=== PATIENT | male | born 1950 | race Caucasian/White ===

== ENCOUNTER 2018-04-15 06:32 | Emergency (ER) | payer MEDICARE, OTHER ==
[2018-04-15] MEDS ORDERED: MELOXICAM 7.5 MG TABLET PO STA (07:14)
--- NOTE | 2018-04-15 07:17 | ED Physician Documentation ---
History of Present Illness - Stated complaint Stated Complaint: R FOOT PX - Chief complaint Chief Complaint: Ext Problem - History obtained from History obtained from: Patient - History of Present Illness Timing: How many days ago (3) Pain level max: 8 Pain level now: 6 - Additonal information Additional information: Patient is a 67-year-old gentleman who recently returned from a backpacking trip in which he walked approximately 50 miles. States increasing pain to the Achilles tendon on the right ankle. Has had problems with this tendon in the past. Worse with walking. Better with rest. Has taken Advil for this. No fall, no injury. No recent antibiotic use Review of Systems Musculoskeletal: denies: Back pain Neurologic: denies: Numbness, Headache PD PAST MEDICAL HISTORY - Past Medical History Past Medical History: Yes Cardiovascular: None Respiratory: Asthma Endocrine/Autoimmune: None GI: GERD : Nocturia HEENT: Chronic vision loss, Other Psych: None Musculoskeletal: Chronic back pain, Other Derm: None - Past Surgical History Past Surgical History: Yes General: Other Ortho: Hip replacement, Knee replacement, Other HEENT: Tonsil/Adenoidectomy - Present Medications Home Medications: Ambulatory Orders Medication Instructions Recorded Confirmed Albuterol Sulfate [Proventil Hfa] 6.7 gm IH QID PRN 08/13/13 10/18/16 Fluticasone [Flonase] 1 sprays MONA DAILY PRN 08/13/13 10/18/16 Ropinirole HCl [Requip Xl] 6 mg PO DAILY 08/13/13 10/18/16 Ropinirole HCl [Requip] 3 mg PO DAILY 08/13/13 10/18/16 Gabapentin [Neurontin] 600 mg PO ACHS PRN 04/08/14 10/18/16 Tamsulosin HCl [Flomax] 0.4 mg PO DAILY 06/10/14 10/18/16 Meloxicam [Mobic] 15 mg PO DAILY PRN #20 tablet 04/15/18 - Allergies Allergies/Adverse Reactions: Allergies Allergy/AdvReac Type Severity Reaction Status Date / Time neomycin [Neomycin] Allergy Intermediate Rash Verified 04/15/18 06:41 acetaminophen [From Percocet] AdvReac Intermediate Itching Verified 04/15/18 06: 41 oxycodone HCl * AdvReac Intermediate Itching Verified 04/15/18 06:41 [From Percocet] - Social History Does the pt smoke?: No Smoking Status: Never smoker Does the pt drink ETOH?: Yes Does the pt have substance abuse?: No - Immunizations Immunizations are current?: Yes - POLST Patient has POLST: No PD ED PE NORMAL - Vitals Vital signs reviewed: Yes - General General: Alert and oriented X 3, No acute distress - Derm Derm: Warm and dry - Extremities Extremities: Other (Tender to palpation over the right distal Achilles tendon. Good plantar and dorsiflexion of the foot. Foot plantar flexes with squeezing of the calf. No deformity. Otherwise normal exam of the foot and ankle. Neurovascularly intact) - Neuro Neuro: Alert and oriented X 3 - Psych Psych: Normal mood, Normal affect Results - Vitals Vitals: Vital Signs - 24 hr 04/15/18 06:36 Temperature 36.5 C Heart Rate 64 Respiratory 18 Rate Blood Pressure 133/65 H O2 Saturation 99 Oxygen O2 Source [Without Activity] Room air O2 Source Room air PD MEDICAL DECISION MAKING - ED course Complexity details: considered differential, d/w patient ED course: Patient is a 67-year-old male who presents to the emergency department with her right ankle Achilles tendinitis. No evidence of rupture. Placed in a walking boot and will place on meloxicam for home. We will have him follow-up with his doctor for further care. Likely overuse injury from his recent backpacking trip. Patient counseled regarding signs and symptoms for which I believe and urgent re-evaluation would be necessary. Patient with good understanding of and agreement to plan and is comfortable going home at this time This document was made in part using voice recognition software. While efforts are made to proofread this document, sound alike and grammatical errors may occur. Departure - Departure Disposition: Home, Self Care Clinical Impression: Achilles tendinitis, right leg Condition: Good Instructions: Achilles Tendonitis Follow-Up: Curt Varner MD [Primary Care Provider] - Within 1 week Prescriptions: Meloxicam [Mobic] 15 mg PO DAILY PRN #20 tablet PRN Reason: pain Comments: Wear the boot as much as possible for comfort. Return if you worsen. You should be reevaluated by your doctor in 1 week to ensure that you are healing as expected.
[2018-04-15 07:39] VITALS: BP 144/62
== END 2018-04-15 07:31 | disposition home or self-care (01) ==
LOC: ED 06:32
DX: M76.61 Achilles tendinitis, right leg (principal); Z96.659 Presence of unspecified artificial knee joint; Z96.649 Presence of unspecified artificial hip joint
CPT/HCPCS: 99283; A9270

== ENCOUNTER 2018-08-15 09:46 | Outpatient (CLI) | payer MEDICARE, OTHER ==
--- NOTE | 2018-08-15 11:18 | Ultrasound Report ---
Reason: RIGHT LEG EDEMA Procedure Date: 08/15/2018 Accession Number: [id number] / [id number] Procedure: US - Duplex Ext Veins Right CPT Code: FULL RESULT: EXAM: RIGHT LOWER EXTREMITY VENOUS ULTRASOUND EXAM DATE: 08/15/2018 10:44 AM. CLINICAL HISTORY: Right leg edema. COMPARISON: None. TECHNIQUE: Real-time sonographic vascular imaging was performed by the loom fixer helper through the lower extremity utilizing both color-flow and Doppler spectral analysis. Multiple administrative representative static images were saved for review. FINDINGS: Common Femoral Vein (CFV): Normal. CFV-GSV Junction: Normal. Profunda Femoral Vein (PFV): Normal. Femoral Vein (FV) Prox: Normal. Femoral Vein (FV) Mid: Normal. Femoral Vein (FV) Dist: Normal. Popliteal Vein: Normal. Posterior Tibial Veins: Normal. Peroneal Veins: Normal. Contralateral Side CFV: Normal. Other: Note is made of superficial soft tissue edema at the calves. IMPRESSION: No evidence for deep venous thrombosis. RADIA The above findings of no DVT but superficial calf edema were discussed with Christiana Peralta by Dr. Adalberto Mcnair at 11:16 hrs on 08/15/18.
== END 2018-08-15 09:47 | disposition home or self-care (01) ==
LOC: DI 09:46
PROVIDERS: ATTEND Nurse Practitioner Family
DX: R60.0 Localized edema (principal)

== ENCOUNTER 2020-03-05 15:15 | Emergency (ER) | payer MEDICARE, BC ==
--- NOTE | 2020-03-05 17:00 | ED Physician Documentation ---
History of Present Illness - Stated complaint Stated Complaint: L THIGH PAIN - Chief complaint Chief Complaint: Ext Problem - History obtained from History obtained from: Patient (69 yo M with multiple prior left lower ext surgeries including tka and a revision of tka as well as left hip arthroplasy presents with severe pain in the left thigh. Pain has been present on/off for a couple of weeks but worsening recently. Over the last several days he has not been able to bear weight or ambulate due to the pain. It comes in waves, unsure if anything makes it better. Has tried muscle rub and tried a dose of percocet from a friend w/o relief. Pt states he has tried to fup w/ surgeon but unable to do so due to covid. He was apparently told by their office to present for possible ultrasound due to concern for DVT. Pt denies any new trauma, no falls, no heavy activity. He has chronic swelling around the knee that is his baseline. No new calf pain or fullness. No redness or swelling of the leg.) Review of Systems Constitutional: reports: Reviewed and negative Cardiac: reports: Reviewed and negative Respiratory: reports: Reviewed and negative GI: reports: Reviewed and negative Skin: reports: Reviewed and negative Musculoskeletal: reports: Extremity pain, Joint pain, Other (left thigh pain) PD PAST MEDICAL HISTORY - Past Medical History Past Medical History: Yes Cardiovascular: None Respiratory: Asthma Endocrine/Autoimmune: None GI: GERD : Nocturia HEENT: Chronic vision loss, Other Psych: None Musculoskeletal: Chronic back pain, Other Derm: None - Past Surgical History Past Surgical History: Yes General: Other Ortho: Hip replacement, Knee replacement, Other HEENT: Tonsil/Adenoidectomy - Present Medications Home Medications: Ambulatory Orders Medication Instructions Recorded Confirmed Albuterol Sulfate [Proventil Hfa] 6.7 gm IH QID PRN 08/13/13 10/18/16 Fluticasone [Flonase] 1 sprays MONA DAILY PRN 08/13/13 10/18/16 Ropinirole HCl [Requip Xl] 6 mg PO DAILY 08/13/13 10/18/16 Ropinirole HCl [Requip] 3 mg PO DAILY 08/13/13 10/18/16 Gabapentin [Neurontin] 600 mg PO ACHS PRN 04/08/14 10/18/16 Tamsulosin HCl [Flomax] 0.4 mg PO DAILY 06/10/14 10/18/16 Meloxicam [Mobic] 15 mg PO DAILY PRN #20 tablet 04/15/18 - Allergies Allergies/Adverse Reactions: Allergies Allergy/AdvReac Type Severity Reaction Status Date / Time neomycin [Neomycin] Allergy Intermediate Rash Verified 03/05/20 15:26 acetaminophen [From Percocet] AdvReac Intermediate Itching Verified 03/05/20 15:26 oxycodone HCl * AdvReac Intermediate Itching Verified 03/05/20 15:26 [From Percocet] - Social History Does the pt smoke?: No Smoking Status: Never smoker Does the pt drink ETOH?: Yes Does the pt have substance abuse?: No - Immunizations Immunizations are current?: Yes - POLST Patient has POLST: No PD ED PE NORMAL - Vitals Vital signs reviewed: Yes - General General: Alert and oriented X 3, No acute distress - HEENT HEENT: Atraumatic - Cardiac Cardiac: No murmur, No gallop, No rub, Strong equal pulses - Respiratory Respiratory: No respiratory distress, Clear bilaterally - Extremities Extremities: No tenderness to palpate, No calf tenderness / cord, Other (chronic lateral knee swelling, multiple healed surgical scars on the knee and hip. Full flex/ext. No erythema, no calf pain or fullness. Pain w/ deep palpation on the lateral side of the left quadracept. ) Results - Vitals Vitals: Vital Signs - 24 hr 03/05/20 15:19 Temperature 36.8 C Heart Rate 68 Respiratory 16 Rate Blood Pressure 120/75 O2 Saturation 95 Oxygen O2 Source [Without Activity] Room air O2 Source Room air PD MEDICAL DECISION MAKING - ED course Complexity details: reviewed results, re-evaluated patient, considered differential, d/w patient
--- NOTE | 2020-03-05 17:24 | XRAY Report ---
Reason: left leg pain Procedure Date: 03/05/2020 Accession Number: [id number] / [id number] Procedure: XR - Hip w/Pelvis 2-3V LT CPT Code: Final Report FULL RESULT: EXAM: LEFT HIP RADIOGRAPHY EXAM DATE: 03/05/2020 04:49 PM. CLINICAL HISTORY: Left leg pain. COMPARISON: 06/08/2011 10:27 AM. TECHNIQUE: 2 views. FINDINGS: Bones: There is a new right hip arthroplasty prosthesis. There is a bipolar left hip arthroplasty prosthesis which appears unchanged. Negative for acute fracture. Joints: There is satisfactory alignment at the left hip arthroplasty. Soft Tissues: No dilated bowel. IMPRESSION: 1. Previous left hip bipolar arthroplasty appearing in satisfactory alignment without acute abnormality. 2. There is a new right hip arthroplasty which appears in satisfactory alignment. RADIA
--- NOTE | 2020-03-05 17:28 | XRAY Report ---
Reason: left upper leg pain Procedure Date: 03/05/2020 Accession Number: [id number] / [id number] Procedure: XR - Knee 3 View LT CPT Code: Final Report FULL RESULT: EXAM: LEFT KNEE RADIOGRAPHY EXAM DATE: 03/05/2020 04:51 PM. CLINICAL HISTORY: Left upper leg pain. COMPARISON: 06/11/2014 12:53 PM. TECHNIQUE: 3 views. FINDINGS: Bones: There is a left total knee arthroplasty prosthesis. There has been interval revision of the tibial component of the prosthesis compared with 06/11/2014. No visualized acute fracture. Joints: Joint space is increased since previous exam. No dislocation. Soft Tissues: There are mild soft tissue calcifications which appear chronic. IMPRESSION: 1. Left total knee arthroplasty which has been revised compared with the most recent previous exam from 06/11/2014. No evidence of acute fracture or dislocation. RADIA
[2020-03-05 17:38] VITALS: BP 121/73
--- NOTE | 2020-03-05 18:29 | Ultrasound Report ---
Reason: pain and swelling Procedure Date: 03/05/2020 Accession Number: [id number] / [id number] Procedure: US - Duplex Ext Veins Left CPT Code: Final Report FULL RESULT: EXAM: LEFT LOWER EXTREMITY VENOUS ULTRASOUND EXAM DATE: 03/05/2020 05:53 PM. CLINICAL HISTORY: Pain and swelling. COMPARISON: LEFT LE VENOUS DUPLEX 06/15/2011 10:52 PM. TECHNIQUE: Real-time sonographic vascular imaging was performed by the social human services assistants through the lower extremity utilizing both color-flow and Doppler spectral analysis. Multiple motor vehicle field representative static images were saved for review. FINDINGS: Common Femoral Vein (CFV): Normal. CFV-GSV Junction: Normal. Profunda Femoral Vein (PFV): Normal. Femoral Vein (FV) Prox: Normal. Femoral Vein (FV) Mid: Normal. Femoral Vein (FV) Dist: Normal. Popliteal Vein: Normal. Posterior Tibial Veins: Normal. Other: Suboptimal visualization of calf veins. IMPRESSION: No evidence for deep venous thrombosis. RADIA
== END 2020-03-05 18:55 | disposition home or self-care (01) ==
LOC: ED 15:15
DX: M79.652 Pain in left thigh (principal)
CPT/HCPCS: 99283; 99284

== ENCOUNTER 2020-03-12 07:24 | Outpatient (CLI) | payer MEDICARE, BC ==
[2020-03-12] MEDS ORDERED: GADOBUTROL 10 MMOL/10 ML VIAL ONE (07:45)
[2020-03-12] MEDS: GADOBUTROL 10 MMOL/10 ML VIAL IVP ONE (08:24)
--- NOTE | 2020-03-12 11:58 | MRI Report ---
Reason: LOW BACK PAIN Procedure Date: 03/12/2020 Accession Number: [id number] / [id number] Procedure: MRI - Lumbar Spine W/WO CPT Code: Final Report FULL RESULT: MRI LUMBAR SPINE WITHOUT AND WITH CONTRAST INDICATION: 69-year-old male. Low back pain and pain radiating down left leg to calf for 1 year. History of lumbar spine fusion surgery 5 years ago. TECHNIQUE: 1. Sagittal STIR, T1 and T2. 2. Axial T1 and T2. 3. 10 mL of IV Gadavist. T1 axial and fat-saturated T1 sagittal. COMPARISON: 12/17/2013. FINDINGS: There appear to be 5 non-rib bearing, lumbar type vertebrae. New postsurgical changes are demonstrated. There is evidence of interval bilateral laminotomy at L3-L4. In addition, there is evidence of interval instrumented posterior fusion from L3 to S1. On the right, pedicle screws are seen at L3, L4, L5 and S1. On the left, pedicle screws are seen at L3, L5 and S1. There appear to be interconnecting rods in place. There is magnetic susceptibility artifact from the fusion hardware; however, this is not resulting in significant image degradation. Also noted are new findings of diskectomy and interbody fusion surgery at L5-S1. An interbody fusion device is demonstrated in place. There is no trabecular bone traversing the L5-S1 disk space to confirm solid interbody fusion. Again demonstrated are spondylotic defects through the pars interarticularis at L5 bilaterally with associated grade 1/2 anterolisthesis of L5 on S1 measuring about 10 mm, unchanged. There is a minor, stepwise retrolisthesis of T12 on L1, L1 on L2, and L2 on L3 measuring roughly 2-3 mm at all 3 levels. The vertebral alignment is otherwise unremarkable. There is absence of normal T2 signal from the disks at all levels, confirming disk degeneration. In addition, there is multilevel degenerative disk space narrowing that appears similar to the prior study. There is at least moderate disk space narrowing at T12-L1. Moderate to severe disk space narrowing is demonstrated at L1-L2, L2-L3, L3-L4 and L4-L5. There has been interval development of abnormal T2 hyperintensity within the L3-L4 disk. This always raises concern with respect to possible infection. However, there is no evidence of osteomyelitis in the adjacent vertebral endplates. In addition, there is no evidence of paraspinous or epidural abscess/phlegmon. Therefore the high T2 signal within the disk appears to relate to degenerative disk disease rather than infection. There is type I reactive marrow change in the vertebral endplates at L2-L3, anteriorly. Type II reactive marrow changes are demonstrated at L1-L2, L3-L4, L4-L5 and L5-S1. The marrow signal intensity is otherwise unremarkable. The conus terminates in appropriate fashion at about the mid L1 level. There is no abnormal thickening or lipomatous change of the filum. Axial images: T10-T11: Tiny broad-based posterior protrusion with minimal mass effect on the ventral aspect of the thecal sac. Degenerative facet arthrosis with minimal bony hypertrophy. Minor mass effect on the dorsal aspect of the dural sac. No significant spinal stenosis. There is a small left intraforaminal extrusion which in combination with facet hypertrophy gives rise to mild to moderate left foraminal stenosis. T11-T12: Tiny extrusion paracentrally on the right with minimal mass effect on the ventral aspect of the thecal sac. Degenerative facet arthrosis with bony hypertrophy causing minor mass effect on the dorsal aspect of the dural sac. No significant spinal stenosis. Minimal foraminal narrowing. T12-L1: Retrolisthesis with associated uncovering of the disk. In addition, there is a tiny posterior protrusion. Mild mass effect on the ventral aspect of the dural sac without significant spinal stenosis. Mild foraminal stenoses. L1-L2: Retrolisthesis with associated uncovering of the disk. In addition, there is a broad-based right intraforaminal/extraforaminal extrusion and a broad-based left posterolateral and intraforaminal/extraforaminal extrusion, similar to the prior study. Degenerative facet arthrosis without significant bony hypertrophy. Minor redundancy of the ligamenta flava. Again demonstrated is mild left subarticular zone stenosis. No compromise of the traversing left-sided nerve roots is demonstrated. No significant central zone or right subarticular zone narrowing. Moderate left and mild to moderate right foraminal stenoses, stable. L2-L3: Retrolisthesis with associated uncovering of the disk. Small right intraforaminal/extraforaminal extrusion. Broad-based left posterolateral and intraforaminal/extraforaminal extrusion, essentially unchanged. Mild redundancy of the ligamenta flava. Interval development of increased thickness of the intralaminar fat pad with associated increase mass effect on the dorsal aspect of the dural sac. The subarticular zones are narrowed bilaterally; however, no definite compromise of either traversing L3 nerve root is demonstrated. There is at least mild central zone spinal stenosis that is new. Mild to moderate foraminal stenoses bilaterally. L3-L4: No posterior disk herniation. No spinal stenosis. Intraforaminal/extraforaminal extrusions with associated intraforaminal osteophyte, similar to the previous study. There is mild to moderate left foraminal stenosis, essentially unchanged. There is at least moderate right foraminal stenosis that actually appears less severe when compared to the prior study. There appears to be minimal if any effacement of the perineural fat surrounding the exiting right L3 nerve root. L4-L5: Small intraforaminal/extraforaminal extrusions with associated intraforaminal osteophyte, essentially unchanged. New left hemilaminotomy. The left ligamentum flavum has been surgically removed. No significant spinal stenosis. There is moderate left and moderate to severe right foraminal narrowing, essentially unchanged. The perineural fat surrounding the exiting right L4 nerve root remains partially effaced. No jermaine compression of the nerve root is demonstrated. L5-S1: Anterolisthesis with associated uncovering of the disk. No posterior protrusion or extrusion has developed. There is no spinal stenosis. Again demonstrated are superiorly directed, intraforaminal extrusions bilaterally giving rise to foraminal narrowing that appears to be moderate to severe on the left and severe on the right. The degree of foraminal narrowing has decreased since the previous study. The postcontrast sequences demonstrate little if any enhancing epidural granulation tissue at L3-L4 or L4-L5. 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 IMPRESSION: 1. There has been interval surgery since the MRI study of 12/17/2013. New findings of diskectomy and interbody fusion surgery are seen at L5-S1. An interbody spacer is demonstrated in place. No trabecular bone is seen traversing the L5-S1 disk space to confirm solid interbody fusion. The timing from prior surgery is unknown, making it impossible to comment on potential nonunion. Also demonstrated are new findings of bilateral laminotomy at L3-L4 and left hemilaminotomy at L4-L5. There is evidence of previous instrumented, posterolateral fusion from L3 to S1. 2. Generative disk and facet changes are seen throughout the lumbar spine, as documented in detail above. 3. Degenerative changes give rise to bilateral subarticular zone stenoses at L2-L3 showing some interval progression since the study of 12/17/2013. However, there is no definite compromise of either traversing L3 nerve root with the patient lying supine (nonweightbearing, nonphysiologic position). 4. There are relatively severe foraminal stenosis at L5-S1. There certainly could be compromise of exiting L5 nerve roots, especially on the right. However, the degree of narrowing actually appears reduced when compared to the study of 12/17/2013. 5. There are potentially significant foraminal stenoses at L3-L4 and L4-L5 on the right. The perineural fat surrounding the exiting L3 and L4 nerve roots appears partially effaced and there could be irritation or even mild impingement of the exiting nerve roots in the right L3-L4 and L4-L5 foramina. However, the degree of narrowing at L3-L4 actually appears decreased when compared to the study of 12/17/2013. 6. Noted is clumping of the intradural nerve roots, on the right at L3-L4 suggesting the possibility of mild, intradural adhesive arachnoiditis. This appears to represent a new finding when compared to the study of 12/17/2013.
== END 2020-03-12 07:25 | disposition home or self-care (01) ==
LOC: DI 07:24
PROVIDERS: ATTEND Nurse Practitioner Family
DX: M51.24 Other intervertebral disc displacement, thoracic region (principal); M51.26 Other intervertebral disc displacement, lumbar region; M51.36 Other intervertebral disc degeneration, lumbar region; M51.27 Other intervertebral disc displacement, lumbosacral region; M47.816 Spondylosis without myelopathy or radiculopathy, lumbar region; M47.817 Spondylosis without myelopathy or radiculopathy, lumbosacral region; M43.16 Spondylolisthesis, lumbar region; M43.17 Spondylolisthesis, lumbosacral region; M48.061 Spinal stenosis, lumbar region without neurogenic claudication; M48.07 Spinal stenosis, lumbosacral region; Z98.1 Arthrodesis status
CPT/HCPCS: 72158; A9585

== ENCOUNTER 2020-03-12 09:06 | Outpatient (CLI) | payer MEDICARE, BC ==
--- NOTE | 2020-03-12 15:51 | Nuclear Medicine Report ---
Reason: PAIN IN LT ARTIFICIAL KNEE Procedure Date: 03/12/2020 Accession Number: [id number] / [id number] Procedure: NM - Bone Limited CPT Code: Final Report FULL RESULT: EXAM: TRIPLE-PHASE BONE SCAN LIMITED EXAM DATE: 03/12/2020 01:16 PM. CLINICAL HISTORY: PAIN IN LT ARTIFICIAL KNEE. COMPARISON: KNEE 3 VIEW LT 03/05/2020 4:13 PM. TECHNIQUE: Patient was injected with 32.9 mCi of technetium 99m MDP intravenously with flow phase gamma camera imaging anteriorly over the knees, 5 seconds per frame for 1 minute. Subsequently, blood pool images of the knees were obtained. The patient returned 3 hours later for multiple spot images of the pelvis and knees. FINDINGS: Flow Phase: Mildly increased flow to the left knee in particular the medial distal femur. Mildly increased flow to the lateral aspect of the right knee. Blood Pool Phase: Mildly increased flow to the left knee most pronounced at the medial aspect of the distal femur and to a lesser degree the medial tibial plateau. Mild increased uptake to the lateral aspect of the right knee. Delayed Phase: Moderate to marked periprosthetic uptake at the left knee most pronounced at the medial distal femur and medial tibial plateau. There is a focus of increased uptake near the tip of the femoral component. Probable degenerative uptake at the right knee most pronounced at the medial and patellofemoral compartments. IMPRESSION: 1. Conspicuous periprosthetic uptake at the left knee with evidence of mild hyperemia. Aseptic loosening is a diagnostic consideration. Infection not excluded. RADIA
== END 2020-03-12 09:07 | disposition home or self-care (01) ==
LOC: DI 09:06
PROVIDERS: ATTEND Orthopaedic Surgery
DX: T84.84XA Pain due to internal orthopedic prosthetic devices, implants and grafts, initial encounter (principal); Z96.652 Presence of left artificial knee joint; R68.89 Other general symptoms and signs; M51.24 Other intervertebral disc displacement, thoracic region; M51.26 Other intervertebral disc displacement, lumbar region; M51.36 Other intervertebral disc degeneration, lumbar region; M51.27 Other intervertebral disc displacement, lumbosacral region; M47.817 Spondylosis without myelopathy or radiculopathy, lumbosacral region; M47.816 Spondylosis without myelopathy or radiculopathy, lumbar region; M43.16 Spondylolisthesis, lumbar region; M43.17 Spondylolisthesis, lumbosacral region; M48.061 Spinal stenosis, lumbar region without neurogenic claudication; M48.07 Spinal stenosis, lumbosacral region; Z98.1 Arthrodesis status
CPT/HCPCS: 72158; 78300; A9585

== ENCOUNTER 2020-06-03 11:57 | Outpatient (CLI) | payer MEDICARE, BC ==
[2020-06-03 12:10] LABS: CALCIUM 8.7 mg/dL (8.5-10.3)
[2020-06-03] MEDS ORDERED: IOVERSOL 320 100 ML VIAL IVP ONE (12:17)
--- NOTE | 2020-06-03 13:51 | CT Report ---
PROCEDURE: LOWER EXTREMITY W - LT INDICATIONS: LEFT KNEE PAIN CONTRAST: IV CONTRAST: Optiray 320 ml: 100 PO CONTRAST: *NO PO CONTRAST TECHNIQUE: After the administration of intravenous contrast, 2 mm axial sections acquired of the left knee, with coronal and sagittal reformats. COMPARISON: X-ray 03/05/2020, bone scan 03/12/2020. FINDINGS: Image quality: There is metallic streak artifact from patient's knee prosthesis limiting evaluation. Bones: A left total knee prosthesis is redemonstrated. A mildly comminuted new periprosthetic fractu re is demonstrated in the lateral femoral condyle with mild displacement of fracture fragments. There is deformity of the medial femoral condyle consistent with an old fracture redemonstrated. Periprost hetic lucencies are demonstrated within the medial femoral condyle suggestive of loosening or section . There are also increased periprosthetic lucencies along the tibial component with associated new robin ical erosion of the proximal tibia medially. The findings are suspicious for infection given the robin ical erosion. Soft tissues: There is a moderate-sized joint effusion with synovial thickening. Limited evaluation of the soft tissues due to streak artifact demonstrates no discrete abscess collection. IMPRESSION: 1. Periprosthetic fracture in the lateral femoral condyle. Given the associated periprosthetic lucenc ies, the findings likely reflect a pathologic fracture. 2. Periprosthetic lucencies along the femoral and tibial components with associated cortical erosions in the medial tibia. The findings are highly suspicious for osteomyelitis. 3. Moderate size joint effusion with synovial thickening. The findings are nonspecific and the differ ential includes a septic arthritis or reactive synovitis. Findings discussed with Christiana Peralta on 06/03/2020 at 1:45 PM. Reviewed by: Markell Vásquez MD on 06/03/2020 1:50 PM PDT Approved by: Markell Vásquez MD on 06/03/2020 1:50 PM PDT Station ID: [id number]
== END 2020-06-03 11:58 | disposition home or self-care (01) ==
LOC: DI 11:57
PROVIDERS: ATTEND Nurse Practitioner Family
DX: M97.12XA Periprosthetic fracture around internal prosthetic left knee joint, initial encounter (principal); M25.462 Effusion, left knee
CPT/HCPCS: 36415; 73701; 80048; Q9967

== ENCOUNTER 2020-06-10 13:00 | Outpatient (CLI) | payer MEDICARE, BC ==
--- NOTE | 2020-06-10 17:56 | CT Report ---
PROCEDURE: LOWER EXTREMITY WO - LT INDICATIONS: DISTAL FEMUR FX TECHNIQUE: Noncontrast 1 mm axial sections acquired of the left knee, with coronal and sagittal reformats. COMPARISON: 06/03/2020. FINDINGS: Image quality: Diagnostic. Beam hardening artifacts are noted. Bones: Again noted is prior left total knee arthroplasty with prosthesis in place. Previously descri bed acute comminuted periprosthetic distal femoral fracture involving lateral femoral condyle is agai n seen with anterior lateral displacement of the fractured fragments. There is also lucency surroundi ng medial periphery of medial femoral condyle adjacent to the prosthesis concerning for age-indetermi delmi comminuted fracture in this area. Increased lucency medial and lateral femoral condyle prosthesi s is again seen concerning for hardware loosening. Similar increased lucency involving the medial por tion of proximal tibial component is also noted. Increased lucency also seen adjacent to lateral aspe ct of proximal tibial prosthesis concerning for area of loosening. Soft tissues: Moderate to large joint effusion is seen. Diffuse soft tissue swelling around right kn ee is also noted. Distal quadriceps tendon and patellar tendon are grossly intact. IMPRESSION: 1. Prior left total knee arthroplasty. Increased area of lucency surrounding distal femoral component and the proximal tibial component of prosthesis concerning for hardware loosening and small particle disease. 2. Suggestion of superimposed pathologic comminuted fracture involving lateral femoral condyle with m inimal displacement. Age indeterminant slightly comminuted fracture also noted involving medial femor al condyle at the area of lucency likely also represent a pathologic fracture. 3. No definite acute fracture is seen in proximal tibia although significant lucency adjacent to medi al aspect of proximal tibial prosthesis is noted with medial cortical disruption concerning for impen ding fracture. 4. Moderate to large joint effusion. No gross intra-articular loose body. Reviewed by: Agus Correa MD on 06/10/2020 5:55 PM PDT Approved by: Agus Correa MD on 06/10/2020 5:55 PM PDT Station ID: [id number]
== END 2020-06-10 13:01 | disposition home or self-care (01) ==
LOC: DI 13:00
PROVIDERS: ATTEND Orthopaedic Surgery Adult Reconstructive Orthopaedic Surgery
DX: M25.562 Pain in left knee (principal); Z96.652 Presence of left artificial knee joint; M84.452A Pathological fracture, left femur, initial encounter for fracture

== ENCOUNTER 2022-03-17 10:36 | Outpatient (CLI) | payer MEDICARE, BC ==
--- NOTE | 2022-03-17 13:06 | XRAY Report ---
PROCEDURE: Knee 3 View LT INDICATIONS: PAIN OF LEFT KNEE JOINT TECHNIQUE: Lateral, sunrise, and 2 AP views of the left knee. COMPARISON: CT left knee 06/10/2020. FINDINGS: Bones: Left knee arthroplasty is redemonstrated in stable position. Lucencies are again seen at the m edial and lateral femoral condyles that again could represent chronic fractures. Lucency is noted at the medial tibial plateau adjacent to the prosthetic component that could indicate loosening. Chronic patella baja. Soft tissues: No joint effusion. No suspicious soft tissue calcifications. IMPRESSION: 1.Left knee arthroplasty in stable position. 2.Medial and lateral femoral condyle chronic lucencies may represent chronic ununited fractures, and not significantly changed when compared to the CT from 06/10/2020 given differences in modality. 3.Chronic lucency at the medial tibial plateau adjacent to the prosthetic component could represent l ucency. Reviewed by: Aakash Morelos MD on 03/17/2022 1:05 PM PDT Approved by: Aakash Morelos MD on 03/17/2022 1:05 PM PDT Station ID: [id number]
== END 2022-03-17 10:37 | disposition home or self-care (01) ==
LOC: DI.S 10:36
PROVIDERS: ATTEND Physician Assistant
DX: M25.562 Pain in left knee (principal); Z96.652 Presence of left artificial knee joint

== ENCOUNTER 2023-07-14 11:47 | Outpatient (CLI) | payer MEDICARE, BC ==
[2023-07-14 12:24] LABS: CREATININE 0.8 mg/dL (0.6-1.3); POTASSIUM 3.6 mmol/L (3.5-4.5)
== END 2023-07-14 11:48 | disposition home or self-care (01) ==
LOC: LAB 11:47
PROVIDERS: ATTEND Anesthesiology
DX: Z01.812 Encounter for preprocedural laboratory examination (principal); Z79.01 Long term (current) use of anticoagulants
CPT/HCPCS: 36415; 82565; 84132; 85014; 93005

== ENCOUNTER 2024-03-08 06:40 | Outpatient (CLI) | payer MEDICARE, BC ==
[2024-03-08 07:26] LABS: CREATININE 0.8 mg/dL (0.6-1.3)
[2024-03-08] MEDS: GADOTERATE MEGLUMINE 10 MMOL/20 ML VIAL IVP ONE (08:44)
--- NOTE | 2024-03-08 17:31 | MRI Report ---
PROCEDURE: MRI lumbar spine with and without contrast INDICATIONS: POLYRADICULOPATHY TECHNIQUE: Noncontrast sagittal T1 spin echo and T2 fast spin echo, sagittal STIR, axial T1 and T2 fast spin ech o through the lumbar spine. In cases with scoliosis, additional coronal T2 fast spin echo may be per formed. After the administration of contrast, sagittal and axial T1 spin echo with fat saturation th rough the lumbar spine. COMPARISON: MRI lumbar spine 03/12/2020 FINDINGS: Image quality: Excellent. Alignment and curvature: Grade 1 anterior spinal listhesis L5-S1 Marrow: Decompressive laminotomy at L3-4 with interbody fusion. Decompressive laminectomy at L4 and L 5 with posterior lateral fusion. Posterior carmela and screw instrumentation L3 S1. Discectomy and interb cate fusion L5-S1. Spinal cord: Conus medullaris terminates at the L1 level. Visualized spinal cord demonstrates partha l signal, without suspicious enhancement. Paraspinous soft tissues: No paravertebral masses or abnormal enhancement. T12-L1: Disc space narrowing and hypertrophic facet joints. There is a new epidural stimulator wire entering the epidural space at the T12-L1 level and extending superiorly. No central or foraminal st enosis. L1-L2: Disc space narrowing posterior disc osteophyte results in mild central stenosis.Hypertrophi c facet joints associated with moderate bilateral foraminal stenosis L2-L3: Disc space narrowing with posterior disc bulge and hypertrophic facet joints. Mild to moder ate central stenosis. Moderate bilateral foraminal stenosis L3-L4: Discectomy and fusion. No central stenosis. Moderate right and mild left foraminal stenosis L4-L5: Posterior decompression present. No central stenosis. Hypertrophic facet joints with moderat e right and mild left foraminal stenosis L5-S1: Discectomy and fusion with posterior decompression. No central stenosis. Moderate bilateral foraminal stenosis. IMPRESSION: Epidural stimulator wire noted posterolaterally in the visualized thoracic spine, new from the prior Instrumented discectomy and fusion at L3-S1 with posterior decompression, similar to prior Degenerative disc disease and arthropathy results in varying degrees of central and foraminal stenosi s including moderate foraminal stenosis throughout the exam Reviewed by: Truong Lagunas MD on 03/08/2024 4:29 PM TRISH Approved by: Truong Lagunas MD on 03/08/2024 4:29 PM AKDT Station ID: [id number]
== END 2024-03-08 06:41 | disposition home or self-care (01) ==
LOC: LAB 06:40
PROVIDERS: ATTEND Psychiatry & Neurology Neuromuscular Medicine
DX: M47.26 Other spondylosis with radiculopathy, lumbar region (principal); M51.16 Intervertebral disc disorders with radiculopathy, lumbar region; M48.061 Spinal stenosis, lumbar region without neurogenic claudication; Z96.82 Presence of neurostimulator; Z98.1 Arthrodesis status
CPT/HCPCS: 36415; 82565

== ENCOUNTER 2024-03-27 07:49 | Outpatient (CLI) | payer MEDICARE, BC ==
[~2024-03-27 07:49] MED LIST: GADOTERATE MEGLUMINE 10 MMOL/20 ML VIAL ONE
[2024-03-27] MEDS: GADOTERATE MEGLUMINE 10 MMOL/20 ML VIAL IVP ONE (18:48)
--- NOTE | 2024-03-28 13:10 | MRI Report ---
PROCEDURE: MRI thoracic spine with and without contrast INDICATIONS: POLYRADICULOPATHY CONTRAST: Clariscan 15.8ml TECHNIQUE: Noncontrast sagittal T1 spin echo and T2 fast spin echo, sagittal STIR, axial T1 and T2 fast spin ech o through the thoracic spine. After the administration of contrast, axial and sagittal T1 spin echo with fat saturation through the thoracic spine. COMPARISON: None. FINDINGS: Alignment and curvature: There is normal bony alignment. Marrow: Marrow is of normal overall signal. No acute vertebral body compression fractures. Anterior osteophytes noted in the mid to lower thoracic spine Spinal cord: Visualized spinal cord is of normal signal and size, without abnormal enhancement. No epidural stimulator is noted in the dorsal epidural space at the T12 level Paraspinous soft tissues: No paravertebral masses or abnormal enhancement. Miscellaneous: Central canal and foramina appear widely patent at all scanned levels. IMPRESSION: Typical anterior osteophytes noted in the mid to lower thoracic spine. No central or foraminal stenos is throughout the exam. Dorsal epidural stimulator wire noted at the T12 level Reviewed by: Truong Lagunas MD on 03/28/2024 12:09 PM TRISH Approved by: Truong Lagunas MD on 03/28/2024 12:09 PM TRISH Station ID: [id number]
--- NOTE | 2024-03-28 19:52 | MRI Report ---
PROCEDURE: Cervical Spine W/WO INDICATIONS: POLYRADICULOPATHY CONTRAST: Clariscan 15.8ml TECHNIQUE: Noncontrast sagittal T1 spin echo and T2 fast spin echo, sagittal STIR, sagittal PD fast spin echo, f oraminal oblique sagittal T2 fast spin echo, axial gradient echo or T2 fast spin echo through the cer vical spine. After the administration of contrast, sagittal and axial T1 spin echo with fat saturati on through the cervical spine. COMPARISON: Correlation is made with the accompanying imaging. FINDINGS: Image quality: Excellent. Alignment and curvature: There is minimal retrolisthesis seen at C3-C4 and the C4-C5. Marrow: Marrow demonstrates normal overall signal. Spinal cord: Visualized spinal cord is normal in size, without white matter lesions. No suspicious intramedullary enhancement. No cerebellar tonsillar herniation. Paraspinous soft tissues: No paravertebral masses or suspicious enhancement. Focal degenerative change can be seen involving the C1-C2 interface anteriorly. Prominence of soft ti ssue can be seen in this region. There is partial erosion of the dens. C2-C3: The disc height is well-preserved. There is loss of disc signal seen. Mild disc osteophyte c omplex is seen. There is mild right-sided and moderate left-sided facet hypertrophy. There is moder ate left-sided and [id number] right-sided neuroforaminal narrowing. Minimal central canal narro wing is seen. C3-C4: Moderate to severe loss of disc height and disc signal can be seen. At least moderate disc os teophyte complex is seen, which is eccentric to the right. There is moderate right-sided and mild lef t-sided facet hypertrophy. There is moderate to severe right-sided and at least moderate left-sided n euroforaminal narrowing. Mild to moderate central canal narrowing seen, with associated mass effect u kurt the ventral spinal cord. C4-C5: Moderate loss of disc height and signal are seen. At least moderate disc osteophyte complex i s seen, with a central disc osteophyte protrusion. There is at least moderate right-sided and moderat e left-sided facet hypertrophy. Moderate to severe bilateral neuroforaminal narrowing can be seen. Mi ld to moderate central canal narrowing is seen, with minimal mass effect upon the ventral spinal cord . C5-C6: At least moderate loss of disc height and disc signal can be seen. Moderate disc osteophyte complex is seen. There is a central disc osteophyte protrusion. There is mild to moderate right-goran ed and mild left-sided facet hypertrophy. There is moderate to severe right-sided and at least modera te left-sided neuroforaminal narrowing. Mild to moderate central canal narrowing is seen, with minima l mass effect upon the ventral spinal cord. C6-C7: Moderate loss of disc height and signal are seen. Moderate disc osteophyte complex is seen. There is a central disc osteophyte protrusion. At least moderate facet hypertrophy can be seen. The re is moderate right-sided and moderate to severe left-sided neuroforaminal narrowing. Mild to modera te central canal narrowing is seen, with minimal mass effect upon the ventral spinal cord. C7-T1: At least moderate loss of disc height and disc signal can be seen. Mild to moderate disc oste ophyte complex is seen. Mild to moderate facet hypertrophy is seen at this level. Moderate bilateral neural foraminal narrowing is seen. Minimal central canal narrowing is seen. IMPRESSION: There is focal degenerative change seen involving the C1-C2 interface anteriorly, with focal enhancin g soft tissue and partial erosion of the dens. Multiple levels of significant cervical spine degenerative change can be seen elsewhere, which are ov erall most prominent at the C3-C4 level. Reviewed by: Vicente Burrows MD on 03/28/2024 6:51 PM TRISH Approved by: Vicente Burrows MD on 03/28/2024 6:51 PM TRISH Station ID: [id number]
== END 2024-03-27 07:50 | disposition home or self-care (01) ==
LOC: DI 07:49
PROVIDERS: ATTEND Psychiatry & Neurology Neuromuscular Medicine
DX: M54.12 Radiculopathy, cervical region (principal); M54.17 Radiculopathy, lumbosacral region; Z53.9 Procedure and treatment not carried out, unspecified reason

== ENCOUNTER 2024-04-11 13:55 | Outpatient (CLI) | payer MEDICARE, BC ==
--- NOTE | 2024-04-11 17:08 | CT Report ---
PROCEDURE: Cervical Spine WO INDICATIONS: ERVICAL SPONDYLOSIS TECHNIQUE: Noncontrast 3 mm thick sections acquired from the skull base to the T4 level. Sagittal and coronal r eformats were then constructed. For radiation dose reduction, the following was used: automated exp osure control, adjustment of mA and/or kV according to patient size. COMPARISON: MRI cervical spine 03/27/2024. FINDINGS: Image quality: Excellent. Bones: No fractures or dislocations. There is straightening of the normal cervical lordosis. Multile trent degenerative changes with intervertebral disc height loss, degenerative endplate changes and spur ring. Multilevel facet and uncovertebral arthropathy. These are most severe at C2-C5. There is no hig h-grade osseous central canal stenosis. Multilevel posterior disc osteophyte complex results in mild osseous central canal stenosis. Multilevel osseous neuroforaminal stenosis. Moderate severe neurofora herbie stenosis bilaterally at C3-C4, C4-C5, C5-C6, on the right at C6-C7. These are grossly similar c ompared to prior MRI given differences in technique. Visualized superior ribs are intact. Soft tissues: Prevertebral soft tissues are normal in thickness. No paravertebral hematomas. No ap ical pneumothoraces. IMPRESSION: 1.Severe multilevel degenerative changes of the cervical spine. 2.No high-grade osseous central canal stenosis. Multilevel posterior disc ossify complex results in m ild multilevel osseous central canal stenosis. 3.Multilevel osseous neuroforaminal stenosis as above with moderate to severe neuroforaminal stenosis as described above. These are not significantly changed compared to recent prior MRI given differenc es in technique. Reviewed by: Arsalan Mclaughlin MD on 04/11/2024 5:06 PM PDT Approved by: Arsalan Mclaughlin MD on 04/11/2024 5:06 PM PDT Station ID: [id number]
== END 2024-04-11 13:56 | disposition home or self-care (01) ==
LOC: DI 13:55
PROVIDERS: ATTEND Psychiatry & Neurology Neuromuscular Medicine
DX: M47.812 Spondylosis without myelopathy or radiculopathy, cervical region (principal); M48.02 Spinal stenosis, cervical region

== ENCOUNTER 2024-06-25 08:46 | Outpatient (CLI) | payer MEDICARE, BC ==
[2024-06-25 15:32] LABS: INR 1.1 (0.8-1.2); PT - PROTHROMBIN TIME 11.8 secs (9.9-12.6)
--- NOTE | 2024-06-25 17:59 | XRAY Report ---
PROCEDURE: Chest 2V INDICATIONS: ACUTE COUGH TECHNIQUE: 2 views of the chest were acquired. COMPARISON: None. FINDINGS: Surgical changes and devices: Partially visualized left shoulder arthroplasty. Lungs and pleura: No pleural effusions or pneumothorax. Lungs are clear. Mediastinum: Mediastinal contours appear normal. Heart size is normal. Bones and chest wall: No suspicious bony lesions. Overlying soft tissues appear unremarkable. IMPRESSION: No acute cardiopulmonary process. Reviewed by: Nita Her MD on 06/25/2024 5:57 PM PDT Approved by: Nita Her MD on 06/25/2024 5:57 PM PDT Station ID: [id number]
== END 2024-06-25 08:47 | disposition home or self-care (01) ==
LOC: DI.S 08:46
PROVIDERS: ATTEND Registered Nurse
DX: R05.1 Acute cough (principal); T65.94XA Toxic effect of unspecified substance, undetermined, initial encounter; R23.8 Other skin changes
CPT/HCPCS: 36415; 85610; 85730

== ENCOUNTER 2024-06-29 08:00 | Outpatient (CLI) | payer MEDICARE, BC ==
--- NOTE | 2024-06-29 16:15 | XRAY Report ---
PROCEDURE: Chest 2V INDICATIONS: BRONCHITIS TECHNIQUE: 2 views of the chest were acquired. COMPARISON: None. FINDINGS: Surgical changes and devices: Neural stimulator device projects over the lower thoracic spine. Parti ally visualized orthopedic hardware of the lumbar spine also noted. Partially visualized total left s houlder arthroplasty hardware. Lungs and pleura: No pleural effusions or pneumothorax. Lungs are clear. Mediastinum: Mediastinal contours appear unremarkable. Heart size is normal. Bones and chest wall: DISH changes of the spine. IMPRESSION: No acute cardiopulmonary process. Reviewed by: dEis Riley MD on 06/29/2024 4:14 PM PDT Approved by: Edis Riley MD on 06/29/2024 4:14 PM PDT Station ID: [id number]
== END 2024-06-29 23:59 | disposition home or self-care (01) ==
LOC: DI.S 08:00
PROVIDERS: ATTEND Emergency Medicine
DX: J40 Bronchitis, not specified as acute or chronic (principal)

== ENCOUNTER 2024-07-20 07:00 | Outpatient (CLI) | payer MEDICARE, BC | END 2024-07-20 23:59 | disposition home or self-care (01) | LOC: LAB.S 07:00 | PROVIDERS: ATTEND Emergency Medicine | DX: R33.9 Retention of urine, unspecified (principal) | CPT/HCPCS: 87086 ==